=== PATIENT | male | born 1970 | race Hispanic/Latino ===

== ENCOUNTER → 2019-07-16 | Outpatient (CLI) | payer OTHER | END | disposition home or self-care (01) | LOC: RAH 07:50 → EEVIPCON 07:50 | PROVIDERS: ATTEND Internal Medicine | DX: N43.2 Other hydrocele (principal); N41.0 Acute prostatitis; R39.11 Hesitancy of micturition | CPT/HCPCS: 76770; 76870 ==

== ENCOUNTER → 2019-09-17 | Outpatient (CLI) | payer OTHER | END | disposition home or self-care (01) | LOC: RAH 10:00 | PROVIDERS: ATTEND Internal Medicine | DX: H70.12 Chronic mastoiditis, left ear (principal); F60.0 Paranoid personality disorder; F32.3 Major depressive disorder, single episode, severe with psychotic features; Z87.820 Personal history of traumatic brain injury | CPT/HCPCS: 70450 ==